=== PATIENT | female | born 1955 | race Caucasian/White ===

== ENCOUNTER → 2019-09-14 | Outpatient (CLI) | payer BC ==
--- NOTE | 2019-09-14 12:44 | PCVCIMAG ---
APPROVED REPORT Study performed: 09/14/2019 11:44:51 Exam: Stress Echocardiogram Indication: Hyperlipidemia Patient Location: Echo lab Stress Nurse: Valeri Cooley RN Status: routine Ht: 5 ft 2 in HR: 76 bpm BP: 100/80 mmHg Rhythm: NSR Medical History Medical History: Family history of cad Procedure The patient underwent an Exercise Stress Test using the Arjun Protocol. Blood pressure, heart rate, and EKG were monitored. An Echocardiogram was performed by body technician/painter in four stages in quad fashion. At peak stress, four selected images were obtained and placed side by side with resting images for comparison. Stress Test Details Stress Test: Exercise stress testing was performed using a Arjun protocol. HR Resting HR: 76 bpmMax Heart Rate (APMHR): 157 bpm Max HR Achieved: 162 bpmTarget HR (85% APMHR): 133 bpm % of APMHR: 103 Recovery HR: 91 bpm HR response to stress: Normal HR response to stress BP Resting BP: 100/80 mmHg Max BP: 142/84 mmHg Recovery BP: 114/64 mmHg BP response to stress: Normal blood pressure response to stress. ECG Resting ECG: Sinus Rhythm Stress ECG: Sinus Rhythm Recovery ECG: Sinus Rhythm Clinical Reason for Termination: Maximal effort Exercise duration: 12 min 08 sec Highest Stage Achieved: Stage 5: 5.0 mph at 18% grade. Exercise capacity: 13.80 METs Overall Exercise Capacity for Age: Excellent Pre-Stress Echo The resting Echocardiogram showed normal left ventricular contractility with an estimated Ejection Fraction of about 55-60%. Normal wall motion in all segments on baseline images. Post-Stress Echo The stress Echocardiogram showed normal left ventricular contractility with an estimated Ejection Fraction of about 60-65%. Normal augmentation of wall motion in all segments on post stress images. Clinical No clinical or ECG evidence for ischemia. Conclusion Clinical Response: Non-ischemic Exercise Capacity: Superior Stress ECG Response: Non-ischemic Stress Echo Images: Non-ischemic The left ventricle is normal in size and wall thickness in both the rest and stress images. Trace mitral and tricuspid regurgitation. Pulmonary artery pressure is 27mmHg. No other significant valvular abnormalties. Other Information Study Quality: Good <Conclusion> The left ventricle is normal in size and wall thickness in both the rest and stress images. Trace mitral and tricuspid regurgitation. Pulmonary artery pressure is 27mmHg. No other significant valvular abnormalties.
== END | disposition home or self-care (01) ==
LOC: PCVCIMAG 11:39
PROVIDERS: ATTEND Internal Medicine Cardiovascular Disease
DX: I08.1 Rheumatic disorders of both mitral and tricuspid valves (principal); E78.5 Hyperlipidemia, unspecified
CPT/HCPCS: 93325; 93351